=== PATIENT | male | born 1980 | race Caucasian/White ===

== ENCOUNTER 2017-05-12 00:24 | Day surgery (SDC) | payer OTHER ==
[~2017-05-12 00:24] MED LIST: AMOCLA875 PO; CYCL100 PO; Carbidopa-Levo1 EAC1 PO; ERGO50000; FEXPSEER; FOLI1 PO; Ferrousul325 MG PO; GENGRAF PO; Hydrocodone-Ap1 EA23 PO; IMMUNOGLOBULIN IV; LOSA25 PO; Lidocaine-Priloc5 GM TOP; METTREX2.5 PO; ONDA8 PO; PRED20 PO; PROM25; Rituxan10 MG/ML; Sudogest60 MG PO; VICODIN 5-3001 EACH PO
[2017-10-04] MEDS ORDERED: METO25 PO (11:21)
== END 2017-05-12 12:15 | disposition home or self-care (01) ==
LOC: ATC 00:24
DX: G70.00 Myasthenia gravis without (acute) exacerbation (principal)
CPT/HCPCS: 96365; 96366; 96375; J1200; J1568; J2405

== ENCOUNTER → 2017-05-24 | Outpatient (CLI) | payer OTHER ==
[~2017-05-24] MED LIST changes: +AMOX875 PO; +CEFP200 PO; +Hydrocodone-Ap1 EA26 PO; +LEVFLO500 PO; +METO10 PO; +METO25 PO; +METR500 PO; +OMEPRAZOLE MAGN20 MG PO; +ONDA4ODT SL
== END | disposition home or self-care (01) ==
LOC: LAB SHORT 07:37 → PLD 07:37
DX: D48.5 Neoplasm of uncertain behavior of skin (principal)
CPT/HCPCS: 88305; 88312

== ENCOUNTER 2017-06-23 00:28 | Day surgery (SDC) | payer OTHER ==
[~2017-06-23 00:28] MED LIST changes: -AMOX875 PO; -CEFP200 PO; -Hydrocodone-Ap1 EA26 PO; -LEVFLO500 PO; -METO10 PO; -METO25 PO; -METR500 PO; -OMEPRAZOLE MAGN20 MG PO; -ONDA4ODT SL
[2017-06-23] MEDS ORDERED: AMOX875 PO (08:34)
[2017-10-04] MEDS ORDERED: METO25 PO (11:21)
== END 2017-06-23 12:40 ==
LOC: ATC 00:28
DX: G70.00 Myasthenia gravis without (acute) exacerbation (principal)
CPT/HCPCS: 96365; 96366; J1200; J1568

== ENCOUNTER → 2017-07-21 | Outpatient (CLI) | payer OTHER ==
[~2017-07-21] MED LIST changes: +AMOX875 PO
[2017-07-21 13:43] LABS: Protein, Urine Quantitative 11.4 mg/dL (0.0-11.9)
[2017-07-21 13:44] LABS: Microalbumin, Urine Quant. 6.47 mg/L (0.000-20.000)
== END | disposition home or self-care (01) ==
LOC: LAB 11:39 → LAB FUT 07-19 13:20
PROVIDERS: Internal Medicine Nephrology
DX: N18.2 Chronic kidney disease, stage 2 (mild) (principal); D75.1 Secondary polycythemia; N25.81 Secondary hyperparathyroidism of renal origin; E78.00 Pure hypercholesterolemia, unspecified; E55.9 Vitamin D deficiency, unspecified; R76.9 Abnormal immunological finding in serum, unspecified; R94.5 Abnormal results of liver function studies; R94.6 Abnormal results of thyroid function studies
CPT/HCPCS: 81050; 82043; 84156

== ENCOUNTER 2017-07-30 00:16 | Day surgery (SDC) | payer OTHER | END 2017-07-30 12:15 | disposition home or self-care (01) | LOC: ATC 00:16 | DX: G70.00 Myasthenia gravis without (acute) exacerbation (principal) | CPT/HCPCS: 96365; 96366; 96375; J1200; J1568 ==

== ENCOUNTER 2017-09-09 00:24 | Day surgery (SDC) | payer OTHER | END 2017-09-09 13:00 | disposition home or self-care (01) | LOC: ATC 00:24 | DX: G70.00 Myasthenia gravis without (acute) exacerbation (principal); R11.2 Nausea with vomiting, unspecified | CPT/HCPCS: 96365; 96366; 96375; J1200; J1568 ==

== ENCOUNTER 2017-09-20 13:11 | Inpatient (IN) | payer OTHER ==
[~2017-09-20 13:11] MED LIST changes: -Hydrocodone-Ap1 EA26 PO; -LEVFLO500 PO; -METR500 PO; -OMEPRAZOLE MAGN20 MG PO; -ONDA4ODT SL
[2017-09-21 05:15] LABS: BASOPHILS ABSOLUTE AUTO 0.02 K/mm3 (0.00-0.23); BASOPHILS PERCENT AUTO 0 % (0-2); EOSINOPHILS PERCENT AUTO 0 % (0-6); Hemoglobin 11.6 g/dL (13.5-17.5); IMMATURE GRAN ABSOLUTE AUTO 0.07 K/mm3 (0.00-0.10); IMMATURE GRAN PERCENT AUTO 0 % (0-1); LYMPHOCYTES ABSOLUTE AUTO 0.65 K/mm3 (0.84-5.20); LYMPHOCYTES PERCENT AUTO 4 % (21-46); MONOCYTES ABSOLUTE AUTO 1.44 K/mm3 (0.16-1.47); MONOCYTES PERCENT AUTO 9 % (4-13); Mean Corpuscular HGB 32.7 pg (26.0-34.0); Mean Corpuscular HGB Conc 34.1 g/dL (31.5-36.5); Mean Corpuscular Volume 96 fL (80-100); Mean Platelet Volume 9.6 fL (9.1-12.4); NEUTROPHILS ABSOLUTE AUTO 14.84 K/mm3 (1.96-9.15); NEUTROPHILS PERCENT AUTO 87 % (41-73); Platelet Count 254 K/mm3 (150-400); RDW Coefficient Variation 13.4 % (11.7-14.2); RDW Standard Deviation 47.3 fL (35.1-46.3); Red Blood Cell Count 3.55 M/mm3 (4.30-5.90); White Blood Cell Count 17.02 K/mm3 (4.00-11.30)
[2017-09-21 05:34] LABS: Alanine Aminotransfer (ALT/SGP 26 U/L (12-78); Albumin/Globulin Ratio 0.5 (0.8-1.8); Alk Phos 105 U/L (50-136); Anion Gap 7 mmol/L (6-16); Aspartate Aminotrans (AST/SGOT 16 U/L (12-37); Bilirubin, Total 1.1 mg/dL (0.1-1.0); Blood Urea Nitrogen 21 mg/dL (8-24); Bun/Creatinine Ratio 17.1 (12.0-20.0); CO2, Blood 27 mmol/L (21-32); Calcium, Blood 8.2 mg/dL (8.5-10.1); Chloride, Blood 103 mmol/L (98-108); Creatinine, Blood 1.23 mg/dL (0.60-1.20); Globulin, Blood 5.5 g/dL (2.2-4.0); Glomerular Filtration Rate >60 (60-); Glucose, Blood 141 mg/dL (70-99); Potassium, Blood 4.5 mmol/L (3.5-5.5); Sodium, Blood 137 mmol/L (136-145); Total Protein, Blood 8.5 g/dL (6.4-8.2)
[2017-09-22 05:16] LABS: BASOPHILS ABSOLUTE AUTO 0.03 K/mm3 (0.00-0.23); BASOPHILS PERCENT AUTO 0 % (0-2); EOSINOPHILS ABSOLUTE AUTO 0.04 K/mm3 (0.00-0.68); EOSINOPHILS PERCENT AUTO 0 % (0-6); Hematocrit 36.5 % (37.0-53.0); Hemoglobin 12.3 g/dL (13.5-17.5); IMMATURE GRAN ABSOLUTE AUTO 0.08 K/mm3 (0.00-0.10); IMMATURE GRAN PERCENT AUTO 1 % (0-1); LYMPHOCYTES ABSOLUTE AUTO 0.98 K/mm3 (0.84-5.20); LYMPHOCYTES PERCENT AUTO 6 % (21-46); MONOCYTES ABSOLUTE AUTO 1.63 K/mm3 (0.16-1.47); MONOCYTES PERCENT AUTO 10 % (4-13); Mean Corpuscular HGB 32.3 pg (26.0-34.0); Mean Corpuscular HGB Conc 33.7 g/dL (31.5-36.5); Mean Corpuscular Volume 96 fL (80-100); Mean Platelet Volume 9.4 fL (9.1-12.4); NEUTROPHILS ABSOLUTE AUTO 13.33 K/mm3 (1.96-9.15); NEUTROPHILS PERCENT AUTO 83 % (41-73); Platelet Count 299 K/mm3 (150-400); RDW Coefficient Variation 13.8 % (11.7-14.2); RDW Standard Deviation 48.3 fL (35.1-46.3); Red Blood Cell Count 3.81 M/mm3 (4.30-5.90); White Blood Cell Count 16.09 K/mm3 (4.00-11.30)
[2017-09-23 04:59] LABS: BASOPHILS ABSOLUTE AUTO 0.05 K/mm3 (0.00-0.23); BASOPHILS PERCENT AUTO 0 % (0-2); EOSINOPHILS ABSOLUTE AUTO 0.37 K/mm3 (0.00-0.68); EOSINOPHILS PERCENT AUTO 3 % (0-6); Hematocrit 35.9 % (37.0-53.0); Hemoglobin 12.1 g/dL (13.5-17.5); IMMATURE GRAN ABSOLUTE AUTO 0.06 K/mm3 (0.00-0.10); IMMATURE GRAN PERCENT AUTO 1 % (0-1); LYMPHOCYTES ABSOLUTE AUTO 1.18 K/mm3 (0.84-5.20); LYMPHOCYTES PERCENT AUTO 9 % (21-46); MONOCYTES ABSOLUTE AUTO 1.75 K/mm3 (0.16-1.47); MONOCYTES PERCENT AUTO 14 % (4-13); Mean Corpuscular HGB 32.6 pg (26.0-34.0); Mean Corpuscular HGB Conc 33.7 g/dL (31.5-36.5); Mean Corpuscular Volume 97 fL (80-100); Mean Platelet Volume 9.5 fL (9.1-12.4); NEUTROPHILS ABSOLUTE AUTO 9.53 K/mm3 (1.96-9.15); NEUTROPHILS PERCENT AUTO 74 % (41-73); Platelet Count 322 K/mm3 (150-400); RDW Standard Deviation 49.8 fL (35.1-46.3); Red Blood Cell Count 3.71 M/mm3 (4.30-5.90); White Blood Cell Count 12.94 K/mm3 (4.00-11.30)
[2017-09-23 05:15] LABS: Bun/Creatinine Ratio 16.9 (12.0-20.0); Calcium, Blood 8.2 mg/dL (8.5-10.1); Creatinine, Blood 2.19 mg/dL (0.60-1.20); Potassium, Blood 3.4 mmol/L (3.5-5.5)
[2017-09-24 04:16] LABS: BASOPHILS ABSOLUTE AUTO 0.03 K/mm3 (0.00-0.23); BASOPHILS PERCENT AUTO 0 % (0-2); EOSINOPHILS ABSOLUTE AUTO 0.37 K/mm3 (0.00-0.68); EOSINOPHILS PERCENT AUTO 3 % (0-6); Hematocrit 32.3 % (37.0-53.0); Hemoglobin 11.1 g/dL (13.5-17.5); IMMATURE GRAN ABSOLUTE AUTO 0.06 K/mm3 (0.00-0.10); IMMATURE GRAN PERCENT AUTO 1 % (0-1); LYMPHOCYTES PERCENT AUTO 6 % (21-46); MONOCYTES ABSOLUTE AUTO 1.51 K/mm3 (0.16-1.47); MONOCYTES PERCENT AUTO 13 % (4-13); Mean Corpuscular HGB 33.4 pg (26.0-34.0); Mean Corpuscular HGB Conc 34.4 g/dL (31.5-36.5); Mean Corpuscular Volume 97 fL (80-100); Mean Platelet Volume 9.1 fL (9.1-12.4); NEUTROPHILS ABSOLUTE AUTO 9.01 K/mm3 (1.96-9.15); NEUTROPHILS PERCENT AUTO 77 % (41-73); Platelet Count 284 K/mm3 (150-400); RDW Standard Deviation 49.4 fL (35.1-46.3); Red Blood Cell Count 3.32 M/mm3 (4.30-5.90); White Blood Cell Count 11.68 K/mm3 (4.00-11.30)
[2017-09-24 04:31] LABS: Bun/Creatinine Ratio 19.7 (12.0-20.0); Calcium, Blood 8.2 mg/dL (8.5-10.1); Creatinine, Blood 2.13 mg/dL (0.60-1.20); Potassium, Blood 3.7 mmol/L (3.5-5.5)
[2017-09-25 05:00] LABS: BASOPHILS ABSOLUTE AUTO 0.02 K/mm3 (0.00-0.23); BASOPHILS PERCENT AUTO 0 % (0-2); EOSINOPHILS ABSOLUTE AUTO 0.51 K/mm3 (0.00-0.68); EOSINOPHILS PERCENT AUTO 6 % (0-6); Hematocrit 28.1 % (37.0-53.0); Hemoglobin 9.4 g/dL (13.5-17.5); IMMATURE GRAN ABSOLUTE AUTO 0.03 K/mm3 (0.00-0.10); IMMATURE GRAN PERCENT AUTO 0 % (0-1); LYMPHOCYTES PERCENT AUTO 8 % (21-46); MONOCYTES ABSOLUTE AUTO 0.97 K/mm3 (0.16-1.47); MONOCYTES PERCENT AUTO 11 % (4-13); Mean Corpuscular HGB 32.1 pg (26.0-34.0); Mean Corpuscular HGB Conc 33.5 g/dL (31.5-36.5); Mean Corpuscular Volume 96 fL (80-100); Mean Platelet Volume 9.3 fL (9.1-12.4); NEUTROPHILS ABSOLUTE AUTO 6.38 K/mm3 (1.96-9.15); NEUTROPHILS PERCENT AUTO 74 % (41-73); Platelet Count 240 K/mm3 (150-400); RDW Standard Deviation 49.1 fL (35.1-46.3); Red Blood Cell Count 2.93 M/mm3 (4.30-5.90); White Blood Cell Count 8.61 K/mm3 (4.00-11.30)
[2017-09-25 05:17] LABS: Albumin, Blood 2.3 g/dL (3.4-5.0); Anion Gap 9 mmol/L (6-16); Blood Urea Nitrogen 39 mg/dL (8-24); Bun/Creatinine Ratio 23.9 (12.0-20.0); CO2, Blood 23 mmol/L (21-32); Chloride, Blood 108 mmol/L (98-108); Creatinine, Blood 1.63 mg/dL (0.60-1.20); Glomerular Filtration Rate 51 (60-); Glucose, Blood 102 mg/dL (70-99); Phosphorus, Blood 2.9 mg/dL (2.5-4.9); Potassium, Blood 3.8 mmol/L (3.5-5.5); Sodium, Blood 140 mmol/L (136-145)
[2017-09-26 04:43] LABS: BASOPHILS ABSOLUTE AUTO 0.03 K/mm3 (0.00-0.23); BASOPHILS PERCENT AUTO 0 % (0-2); EOSINOPHILS PERCENT AUTO 5 % (0-6); Hematocrit 27.6 % (37.0-53.0); Hemoglobin 9.1 g/dL (13.5-17.5); IMMATURE GRAN ABSOLUTE AUTO 0.04 K/mm3 (0.00-0.10); IMMATURE GRAN PERCENT AUTO 0 % (0-1); LYMPHOCYTES ABSOLUTE AUTO 0.64 K/mm3 (0.84-5.20); LYMPHOCYTES PERCENT AUTO 6 % (21-46); MONOCYTES PERCENT AUTO 9 % (4-13); Mean Corpuscular HGB 31.7 pg (26.0-34.0); Mean Corpuscular Volume 96 fL (80-100); Mean Platelet Volume 9.2 fL (9.1-12.4); NEUTROPHILS ABSOLUTE AUTO 8.46 K/mm3 (1.96-9.15); NEUTROPHILS PERCENT AUTO 79 % (41-73); Platelet Count 272 K/mm3 (150-400); RDW Coefficient Variation 14.3 % (11.7-14.2); RDW Standard Deviation 50.2 fL (35.1-46.3); Red Blood Cell Count 2.87 M/mm3 (4.30-5.90); White Blood Cell Count 10.67 K/mm3 (4.00-11.30)
[2017-09-26 05:04] LABS: Albumin, Blood 2.3 g/dL (3.4-5.0); Anion Gap 8 mmol/L (6-16); Blood Urea Nitrogen 24 mg/dL (8-24); Bun/Creatinine Ratio 20.5 (12.0-20.0); CO2, Blood 24 mmol/L (21-32); Chloride, Blood 110 mmol/L (98-108); Creatinine, Blood 1.17 mg/dL (0.60-1.20); Glomerular Filtration Rate >60 (60-); Glucose, Blood 89 mg/dL (70-99); Phosphorus, Blood 2.2 mg/dL (2.5-4.9); Potassium, Blood 3.9 mmol/L (3.5-5.5); Sodium, Blood 142 mmol/L (136-145)
[2017-09-27 05:13] LABS: BASOPHILS ABSOLUTE AUTO 0.03 K/mm3 (0.00-0.23); BASOPHILS PERCENT AUTO 0 % (0-2); EOSINOPHILS ABSOLUTE AUTO 0.64 K/mm3 (0.00-0.68); EOSINOPHILS PERCENT AUTO 5 % (0-6); Hematocrit 27.2 % (37.0-53.0); Hemoglobin 9.1 g/dL (13.5-17.5); IMMATURE GRAN ABSOLUTE AUTO 0.07 K/mm3 (0.00-0.10); IMMATURE GRAN PERCENT AUTO 1 % (0-1); LYMPHOCYTES PERCENT AUTO 5 % (21-46); MONOCYTES ABSOLUTE AUTO 1.19 K/mm3 (0.16-1.47); MONOCYTES PERCENT AUTO 9 % (4-13); Mean Corpuscular HGB 32.2 pg (26.0-34.0); Mean Corpuscular HGB Conc 33.5 g/dL (31.5-36.5); Mean Corpuscular Volume 96 fL (80-100); Mean Platelet Volume 9.4 fL (9.1-12.4); NEUTROPHILS ABSOLUTE AUTO 10.27 K/mm3 (1.96-9.15); NEUTROPHILS PERCENT AUTO 80 % (41-73); Platelet Count 278 K/mm3 (150-400); RDW Coefficient Variation 14.1 % (11.7-14.2); RDW Standard Deviation 49.9 fL (35.1-46.3); Red Blood Cell Count 2.83 M/mm3 (4.30-5.90)
[2017-09-27 05:29] LABS: Albumin, Blood 2.3 g/dL (3.4-5.0); Anion Gap 10 mmol/L (6-16); Blood Urea Nitrogen 16 mg/dL (8-24); Bun/Creatinine Ratio 16.8 (12.0-20.0); CO2, Blood 21 mmol/L (21-32); Calcium, Blood 7.7 mg/dL (8.5-10.1); Chloride, Blood 109 mmol/L (98-108); Creatinine, Blood 0.95 mg/dL (0.60-1.20); Glomerular Filtration Rate >60 (60-); Glucose, Blood 86 mg/dL (70-99); Phosphorus, Blood 2.8 mg/dL (2.5-4.9); Potassium, Blood 3.8 mmol/L (3.5-5.5); Sodium, Blood 140 mmol/L (136-145)
[2017-09-28 04:15] LABS: BASOPHILS ABSOLUTE AUTO 0.04 K/mm3 (0.00-0.23); BASOPHILS PERCENT AUTO 0 % (0-2); EOSINOPHILS ABSOLUTE AUTO 0.72 K/mm3 (0.00-0.68); EOSINOPHILS PERCENT AUTO 5 % (0-6); Hematocrit 27.4 % (37.0-53.0); Hemoglobin 9.3 g/dL (13.5-17.5); IMMATURE GRAN ABSOLUTE AUTO 0.07 K/mm3 (0.00-0.10); IMMATURE GRAN PERCENT AUTO 1 % (0-1); LYMPHOCYTES ABSOLUTE AUTO 0.85 K/mm3 (0.84-5.20); LYMPHOCYTES PERCENT AUTO 6 % (21-46); MONOCYTES ABSOLUTE AUTO 1.26 K/mm3 (0.16-1.47); MONOCYTES PERCENT AUTO 9 % (4-13); Mean Corpuscular HGB 32.6 pg (26.0-34.0); Mean Corpuscular HGB Conc 33.9 g/dL (31.5-36.5); Mean Corpuscular Volume 96 fL (80-100); Mean Platelet Volume 9.4 fL (9.1-12.4); NEUTROPHILS ABSOLUTE AUTO 10.49 K/mm3 (1.96-9.15); NEUTROPHILS PERCENT AUTO 78 % (41-73); Platelet Count 283 K/mm3 (150-400); RDW Standard Deviation 49.7 fL (35.1-46.3); Red Blood Cell Count 2.85 M/mm3 (4.30-5.90); White Blood Cell Count 13.43 K/mm3 (4.00-11.30)
[2017-09-28 04:31] LABS: Anion Gap 8 mmol/L (6-16); Blood Urea Nitrogen 12 mg/dL (8-24); CO2, Blood 23 mmol/L (21-32); Calcium, Blood 7.3 mg/dL (8.5-10.1); Chloride, Blood 107 mmol/L (98-108); Creatinine, Blood 0.93 mg/dL (0.60-1.20); Glomerular Filtration Rate >60 (60-); Glucose, Blood 83 mg/dL (70-99); Magnesium, Blood 1.3 mg/dL (1.6-2.4); Phosphorus, Blood 2.8 mg/dL (2.5-4.9); Potassium, Blood 3.9 mmol/L (3.5-5.5); Sodium, Blood 138 mmol/L (136-145)
[2017-09-29 10:23] LABS: BASOPHILS ABSOLUTE AUTO 0.05 K/mm3 (0.00-0.23); BASOPHILS PERCENT AUTO 0 % (0-2); EOSINOPHILS ABSOLUTE AUTO 0.71 K/mm3 (0.00-0.68); EOSINOPHILS PERCENT AUTO 6 % (0-6); IMMATURE GRAN ABSOLUTE AUTO 0.12 K/mm3 (0.00-0.10); IMMATURE GRAN PERCENT AUTO 1 % (0-1); LYMPHOCYTES PERCENT AUTO 7 % (21-46); MONOCYTES ABSOLUTE AUTO 1.17 K/mm3 (0.16-1.47); MONOCYTES PERCENT AUTO 10 % (4-13); Mean Corpuscular HGB 31.6 pg (26.0-34.0); Mean Corpuscular HGB Conc 33.3 g/dL (31.5-36.5); Mean Corpuscular Volume 95 fL (80-100); Mean Platelet Volume 9.2 fL (9.1-12.4); NEUTROPHILS PERCENT AUTO 77 % (41-73); Platelet Count 343 K/mm3 (150-400); RDW Coefficient Variation 13.8 % (11.7-14.2); RDW Standard Deviation 47.7 fL (35.1-46.3); Red Blood Cell Count 3.16 M/mm3 (4.30-5.90); White Blood Cell Count 12.25 K/mm3 (4.00-11.30)
[2017-09-29 11:15] LABS: Alanine Aminotransfer (ALT/SGP 34 U/L (12-78); Albumin, Blood 2.6 g/dL (3.4-5.0); Albumin/Globulin Ratio 0.6 (0.8-1.8); Alk Phos 113 U/L (50-136); Anion Gap 10 mmol/L (6-16); Aspartate Aminotrans (AST/SGOT 58 U/L (12-37); Bilirubin, Total 0.8 mg/dL (0.1-1.0); Blood Urea Nitrogen 11 mg/dL (8-24); Bun/Creatinine Ratio 10.1 (12.0-20.0); CO2, Blood 25 mmol/L (21-32); Chloride, Blood 105 mmol/L (98-108); Creatinine, Blood 1.09 mg/dL (0.60-1.20); Globulin, Blood 4.2 g/dL (2.2-4.0); Glomerular Filtration Rate >60 (60-); Glucose, Blood 104 mg/dL (70-99); Potassium, Blood 3.7 mmol/L (3.5-5.5); Sodium, Blood 140 mmol/L (136-145); Total Protein, Blood 6.8 g/dL (6.4-8.2)
[2017-09-30] MEDS ORDERED: Hydrocodone-Ap1 EA26 PO (10:21)
[2017-09-30] MEDS ORDERED: LEVFLO500 PO (10:22)
[2017-09-30] MEDS ORDERED: METR500 PO (10:23)
[2017-09-30] MEDS ORDERED: OMEPRAZOLE MAGN20 MG PO (10:23)
[2017-09-30] MEDS ORDERED: ONDA4ODT SL (10:25)
== END 2017-09-30 12:21 | disposition home or self-care (01) | DRG 853 ==
LOC: SURS 13:11
PROVIDERS: Family Medicine; Internal Medicine; Student in an Organized Health Care Education/Training Program; Surgery
PROC: 0DJD4ZZ Inspection of Lower Intestinal Tract, Percutaneous Endoscopic Approach (ICD-10-PCS; 2017-09-20)
PROC: 0DTH0ZZ Resection of Cecum, Open Approach (ICD-10-PCS; 2017-09-20)
PROC: 0DTJ0ZZ Resection of Appendix, Open Approach (ICD-10-PCS; principal; 2017-09-20 10:15)
DX: A41.9 Sepsis, unspecified organism (principal); K35.3 Acute appendicitis with localized peritonitis; K65.1 Peritoneal abscess; C83.30 Diffuse large B-cell lymphoma, unspecified site; I47.1 Supraventricular tachycardia; N17.9 Acute kidney failure, unspecified; T81.4XXA Infection following a procedure, initial encounter; K21.9 Gastro-esophageal reflux disease without esophagitis; G70.00 Myasthenia gravis without (acute) exacerbation; E78.5 Hyperlipidemia, unspecified; I12.9 Hypertensive chronic kidney disease with stage 1 through stage 4 chronic kidney disease, or unspecified chronic kidney disease; N18.3 Chronic kidney disease, stage 3 (moderate); T36.1X1A Poisoning by cephalosporins and other beta-lactam antibiotics, accidental (unintentional), initial encounter; L25.1 Unspecified contact dermatitis due to drugs in contact with skin; G25.81 Restless legs syndrome
CPT/HCPCS: 36415; 71046; 74018; 74177; 80048; 80053; 80069; 83605; 83735; 83880; 84100; 84443; 85025; 85379; 86140; 87040; 87493; 88304; 93005; 93010; 93970; 96361; 96365; G0378; J0295; J0696; J2185; J2250; J2405; J2550; J2765; J3010; J3480; J7030; J7120; Q0163; Q9967

== ENCOUNTER → 2017-09-20 | Outpatient (CLI) | payer OTHER ==
[~2017-09-20] MED LIST changes: +Hydrocodone-Ap1 EA26 PO; +LEVFLO500 PO; +METR500 PO; +OMEPRAZOLE MAGN20 MG PO; +ONDA4ODT SL
[2017-09-20 08:15] LABS: BASOPHILS ABSOLUTE AUTO 0.04 K/mm3 (0.00-0.23); BASOPHILS PERCENT AUTO 0 % (0-2); EOSINOPHILS ABSOLUTE AUTO 0.27 K/mm3 (0.00-0.68); EOSINOPHILS PERCENT AUTO 2 % (0-6); Hematocrit 35.6 % (37.0-53.0); Hemoglobin 12.6 g/dL (13.5-17.5); IMMATURE GRAN ABSOLUTE AUTO 0.07 K/mm3 (0.00-0.10); IMMATURE GRAN PERCENT AUTO 1 % (0-1); LYMPHOCYTES PERCENT AUTO 10 % (21-46); MONOCYTES PERCENT AUTO 11 % (4-13); Mean Corpuscular HGB 33.4 pg (26.0-34.0); Mean Corpuscular HGB Conc 35.4 g/dL (31.5-36.5); Mean Corpuscular Volume 94 fL (80-100); Mean Platelet Volume 9.6 fL (9.1-12.4); NEUTROPHILS ABSOLUTE AUTO 11.03 K/mm3 (1.96-9.15); NEUTROPHILS PERCENT AUTO 77 % (41-73); Platelet Count 260 K/mm3 (150-400); RDW Coefficient Variation 13.3 % (11.7-14.2); RDW Standard Deviation 45.8 fL (35.1-46.3); Red Blood Cell Count 3.77 M/mm3 (4.30-5.90); White Blood Cell Count 14.31 K/mm3 (4.00-11.30)
[2017-09-20 08:24] LABS: Albumin, Blood 3.7 g/dL (3.4-5.0); Albumin/Globulin Ratio 0.7 (0.8-1.8); Bilirubin, Total 1.5 mg/dL (0.1-1.0); Bun/Creatinine Ratio 19.4 (12.0-20.0); Creatinine, Blood 1.6 mg/dL (0.60-1.20); Globulin, Blood 5.6 g/dL (2.2-4.0); Potassium, Blood 3.6 mmol/L (3.5-5.5); Total Protein, Blood 9.3 g/dL (6.4-8.2)
== END | disposition home or self-care (01) ==
LOC: LAB SHORT 08:08 → LAB EV 08:08
PROVIDERS: Physician Assistant Medical
DX: R10.32 Left lower quadrant pain (principal)
CPT/HCPCS: 80053; 83690; 85025

== ENCOUNTER 2017-10-04 11:05 | Emergency (ER) | payer OTHER ==
[~2017-10-04] VITALS: Ht 190.5 cm; Wt 95.2 kg
[~2017-10-04 11:05] MED LIST changes: +Hydrocodone-Ap1 EA26 PO; +LEVFLO500 PO; +METR500 PO; +OMEPRAZOLE MAGN20 MG PO; +ONDA4ODT SL
[2017-10-04] MEDS ORDERED: METO25 (11:21)
[2017-10-04 11:48] LABS: BASOPHILS ABSOLUTE AUTO 0.07 K/mm3 (0.00-0.23); BASOPHILS PERCENT AUTO 1 % (0-2); EOSINOPHILS ABSOLUTE AUTO 0.34 K/mm3 (0.00-0.68); EOSINOPHILS PERCENT AUTO 4 % (0-6); Hematocrit 36.5 % (37.0-53.0); IMMATURE GRAN ABSOLUTE AUTO 0.27 K/mm3 (0.00-0.10); IMMATURE GRAN PERCENT AUTO 3 % (0-1); LYMPHOCYTES ABSOLUTE AUTO 1.24 K/mm3 (0.84-5.20); LYMPHOCYTES PERCENT AUTO 14 % (21-46); MONOCYTES ABSOLUTE AUTO 1.13 K/mm3 (0.16-1.47); MONOCYTES PERCENT AUTO 13 % (4-13); Mean Corpuscular HGB 32.1 pg (26.0-34.0); Mean Corpuscular HGB Conc 32.9 g/dL (31.5-36.5); Mean Platelet Volume 9.4 fL (9.1-12.4); NEUTROPHILS ABSOLUTE AUTO 5.82 K/mm3 (1.96-9.15); NEUTROPHILS PERCENT AUTO 66 % (41-73); Platelet Count 516 K/mm3 (150-400); RDW Coefficient Variation 14.3 % (11.7-14.2); RDW Standard Deviation 50.3 fL (35.1-46.3); Red Blood Cell Count 3.74 M/mm3 (4.30-5.90); White Blood Cell Count 8.87 K/mm3 (4.00-11.30)
[2017-10-04 11:50] LABS: Mean Corpuscular Volume 98 fL (80-100)
[2017-10-04 12:02] LABS: Alanine Aminotransfer (ALT/SGP 36 U/L (12-78); Albumin, Blood 3.2 g/dL (3.4-5.0); Albumin/Globulin Ratio 0.7 (0.8-1.8); Alk Phos 105 U/L (50-136); Anion Gap 10 mmol/L (6-16); Aspartate Aminotrans (AST/SGOT 48 U/L (12-37); Bilirubin, Total 0.7 mg/dL (0.1-1.0); Blood Urea Nitrogen 13 mg/dL (8-24); Bun/Creatinine Ratio 10.7 (12.0-20.0); CO2, Blood 25 mmol/L (21-32); Calcium, Blood 8.3 mg/dL (8.5-10.1); Chloride, Blood 101 mmol/L (98-108); Creatinine, Blood 1.21 mg/dL (0.60-1.20); Globulin, Blood 4.7 g/dL (2.2-4.0); Glomerular Filtration Rate >60 (60-); Glucose, Blood 94 mg/dL (70-99); Potassium, Blood 4.2 mmol/L (3.5-5.5); Sodium, Blood 136 mmol/L (136-145); Total Protein, Blood 7.9 g/dL (6.4-8.2); Troponin I <0.015 ng/mL (0.000-0.040)
[2017-10-05] MEDS ORDERED: CEFP200 PO (01:16)
[2017-10-05] MEDS ORDERED: METO10 PO (01:58)
== END 2017-10-04 13:29 | disposition home or self-care (01) ==
LOC: ER 11:05
PROVIDERS: Physician Assistant
DX: R55 Syncope and collapse (principal); Z88.0 Allergy status to penicillin; Z88.8 Allergy status to other drugs, medicaments and biological substances; Z88.1 Allergy status to other antibiotic agents; Z79.899 Other long term (current) drug therapy; Z79.2 Long term (current) use of antibiotics
CPT/HCPCS: 80053; 81000; 84484; 85025; 93005; 93010; 96360; 96361; 99283; J7030

== ENCOUNTER 2017-10-04 20:48 | Emergency (ER) | payer OTHER ==
[~2017-10-04] VITALS: Ht 190.5 cm; Wt 95.2 kg
[~2017-10-04 20:48] MED LIST changes: +METO25
[2017-10-04 22:28] LABS: BASOPHILS ABSOLUTE AUTO 0.07 K/mm3 (0.00-0.23); BASOPHILS PERCENT AUTO 1 % (0-2); EOSINOPHILS ABSOLUTE AUTO 0.19 K/mm3 (0.00-0.68); EOSINOPHILS PERCENT AUTO 2 % (0-6); Hematocrit 38.1 % (37.0-53.0); Hemoglobin 12.7 g/dL (13.5-17.5); IMMATURE GRAN ABSOLUTE AUTO 0.19 K/mm3 (0.00-0.10); IMMATURE GRAN PERCENT AUTO 2 % (0-1); LYMPHOCYTES ABSOLUTE AUTO 1.23 K/mm3 (0.84-5.20); LYMPHOCYTES PERCENT AUTO 13 % (21-46); MONOCYTES ABSOLUTE AUTO 1.21 K/mm3 (0.16-1.47); MONOCYTES PERCENT AUTO 13 % (4-13); Mean Corpuscular HGB 32.6 pg (26.0-34.0); Mean Corpuscular HGB Conc 33.3 g/dL (31.5-36.5); Mean Corpuscular Volume 98 fL (80-100); Mean Platelet Volume 9.1 fL (9.1-12.4); NEUTROPHILS ABSOLUTE AUTO 6.67 K/mm3 (1.96-9.15); NEUTROPHILS PERCENT AUTO 70 % (41-73); Platelet Count 566 K/mm3 (150-400); RDW Coefficient Variation 14.2 % (11.7-14.2); RDW Standard Deviation 50.6 fL (35.1-46.3); Red Blood Cell Count 3.89 M/mm3 (4.30-5.90); White Blood Cell Count 9.56 K/mm3 (4.00-11.30)
[2017-10-04 22:47] LABS: Anion Gap 10 mmol/L (6-16); Blood Urea Nitrogen 11 mg/dL (8-24); Bun/Creatinine Ratio 9.2 (12.0-20.0); CO2, Blood 26 mmol/L (21-32); Calcium, Blood 8.3 mg/dL (8.5-10.1); Chloride, Blood 104 mmol/L (98-108); Glomerular Filtration Rate >60 (60-); Glucose, Blood 97 mg/dL (70-99); Potassium, Blood 4.1 mmol/L (3.5-5.5); Sodium, Blood 140 mmol/L (136-145); Troponin I <0.015 ng/mL (0.000-0.040)
[2017-10-05] MEDS ORDERED: CEFP200 PO (01:16)
[2017-10-05] MEDS ORDERED: METO10 PO (01:58)
== END 2017-10-05 01:55 | disposition home or self-care (01) ==
LOC: ER 20:48
PROVIDERS: Emergency Medicine
DX: R53.1 Weakness (principal); T37.8X5A Adverse effect of other specified systemic anti-infectives and antiparasitics, initial encounter; Z88.1 Allergy status to other antibiotic agents; Z88.0 Allergy status to penicillin; Z79.899 Other long term (current) drug therapy
CPT/HCPCS: 36415; 71260; 80048; 84484; 85025; 85379; 93005; 93010; 99284; Q9967

== ENCOUNTER 2017-10-11 00:38 | Day surgery (SDC) | payer OTHER ==
[~2017-10-11 00:38] MED LIST changes: +CEFP200 PO; +METO10 PO
== END 2017-10-11 18:27 | disposition home or self-care (01) ==
LOC: ATC 00:38
DX: G70.00 Myasthenia gravis without (acute) exacerbation (principal); R11.2 Nausea with vomiting, unspecified
CPT/HCPCS: 96365; 96375; 96415; J1200; J1568

== ENCOUNTER 2017-11-15 00:30 | Day surgery (SDC) | payer OTHER ==
[~2017-11-15 00:30] MED LIST changes: -METO25; +METO25 PO
== END 2017-11-15 12:21 | disposition home or self-care (01) ==
LOC: ATC 00:30
DX: G70.00 Myasthenia gravis without (acute) exacerbation (principal); R11.2 Nausea with vomiting, unspecified
CPT/HCPCS: 96375; 96413; 96415; J1200; J1568; J2405

== ENCOUNTER 2017-12-20 00:26 | Day surgery (SDC) | payer OTHER | END 2017-12-20 12:45 | disposition home or self-care (01) | LOC: ATC 00:26 | DX: G70.00 Myasthenia gravis without (acute) exacerbation (principal) | CPT/HCPCS: 96365; 96366; 96374; J1200; J1568; J2405 ==

== ENCOUNTER → 2018-01-13 | Outpatient (CLI) | payer OTHER ==
[2018-01-13 11:12] LABS: Protein, Urine Quantitative 13.5 mg/dL (0.0-11.9)
== END | disposition home or self-care (01) ==
LOC: LAB SHORT 07:05 → LAB 07:05 → LAB FUT 01-11 12:35
PROVIDERS: Internal Medicine Nephrology
DX: N18.3 Chronic kidney disease, stage 3 (moderate) (principal); D63.1 Anemia in chronic kidney disease; E78.00 Pure hypercholesterolemia, unspecified; N25.81 Secondary hyperparathyroidism of renal origin; E55.9 Vitamin D deficiency, unspecified; R80.9 Proteinuria, unspecified
CPT/HCPCS: 81050; 82043; 84156

== ENCOUNTER 2018-01-17 00:11 | Day surgery (SDC) | payer OTHER | END 2018-01-17 13:18 | disposition home or self-care (01) | LOC: ATC 00:11 | DX: G70.00 Myasthenia gravis without (acute) exacerbation (principal) | CPT/HCPCS: 96365; 96366; 96375; J1200; J1568 ==

== ENCOUNTER 2018-04-18 00:40 | Day surgery (SDC) | payer OTHER | END 2018-04-18 12:48 | disposition home or self-care (01) | LOC: ATC 00:40 | DX: R11.2 Nausea with vomiting, unspecified (principal); G70.00 Myasthenia gravis without (acute) exacerbation; Z88.1 Allergy status to other antibiotic agents | CPT/HCPCS: 96365; 96366; 96375; J1200; J1568 ==

== ENCOUNTER 2018-05-25 00:01 | Day surgery (SDC) | payer OTHER | END 2018-05-25 11:32 | disposition home or self-care (01) | LOC: ATC 00:01 | DX: R11.2 Nausea with vomiting, unspecified (principal); G70.00 Myasthenia gravis without (acute) exacerbation; Z88.1 Allergy status to other antibiotic agents | CPT/HCPCS: 96365; 96366; 96375; J1200; J1568 ==

== ENCOUNTER 2018-07-28 08:31 | Day surgery (SDC) | payer OTHER ==
[~2018-07-28] VITALS: Ht 190.5 cm; Wt 99.6 kg
[~2018-07-28 08:31] MED LIST changes: +Allegra-D 12 H1 EACH PO; +DIPHENHYDRAMINE IV; +DOCU100 PO; +FERROUS SULFATE PO; -FEXPSEER; +Metoprolol Succ25 MG PO; +NEXIUM 24HR20 M1 PO; +PSEU120ER PO; +PYRIDOSTIGMINE PO; +TYLENOL SINUS1 EAC2 PO
--- NOTE | 2018-07-28 09:50 | NUR ---
History, Chart, Medications and Allergies reviewed before start of procedure.Patient confirms NPO status and agrees with scheduled surgery. Patient reports completing Chlorhexadine shower X2 prior to admission to hospital.Surgical site prepped with 2% Chlorhexidine cloth wipe.
[2018-07-28] MEDS ORDERED: BENZ100A PO (09:58)
--- NOTE | 2018-07-28 19:28 | NUR ---
SHIFT SUMMARY POD #O HERNIA REPAIR PT IS TOLERATING PO INTAKE. PAIN MANAGED PER EMAR PRN. PT UNABLE TO PASS FLATUS. AMBULATION ENCOURAGED. PT HAS REFUSED TO GET OOB. EDUCATION PROVIDED. PROVENA WOUND VAC IN PLACE, SUCTION INTACT, ABD BINDER IN PLACE, SCD'S ARE ON. PT'S IS AT THE BEDSIDE. CALL LIGHT IN REACH.
--- NOTE | 2018-07-29 04:55 | NUR ---
SHIFT SUMMARY PT IS POD 1 HERNIA REPAIR WITH MESH. PT IS A&O, ABLE TO MAKE NEEDS KNOWN. PREVENA WOUND VAC IN PLACE, FOAM COMPRESSED, SURROUNDING AREA DRY. BT ACTIVE, PT REPORTS FLATUS. ABD BINDER IN PLACE. PT HAD NAUSEA OVERNIGHT, MEDICATED PER EMAR. PAIN MEDICATIONS WERE EFFECTIVE, PT HAS INCREASED PAIN WITH COUGHING BUT AT REST HIS PAIN IS LOW AND WELL MANAGED. WILL CTM UNTIL PASS TO NEXT SHIFT.
--- NOTE | 2018-07-29 19:40 | NUR ---
SUMMARY POD #1 HERNIA REPAIR. TOLERATING PO INTAKE WITH SMALL AMOUNT OF NAUSEA. PAIN MANAGED WITH PO NORCO. PROVENA WOUND VAC IN PLACE, SUCTION INTACT. VOIDING WNL. VSS, RESP UNLABORED. AMBULATION STRONGLY ENCOURAGED. PT SAT UP IN A CHAIR FOR AN HR. CALL LIGHT IN REACH. REPORT GIVEN TO JAN ABDULLAHI
--- NOTE | 2018-07-30 05:36 | NUR ---
SHIFT SUMMARY: PT POD #2 FOR HERNIA REPAIR. MIDLINE PROVENA COMPRESSED WITHOUT ANY DRG NOTED T/O SHIFT. PAIN MANAGED WITH NORCO PER EMAR. EATING SML AMTS WITH PAIN MEDS. PT DENIES N/V. LASHELL REG DIET. VOIDING WELL. BT PRESENT, PT REPORTS PASSING GAS. PLAN FOR DISCHARGE TODAY.
[2018-07-30] MEDS ORDERED: HYDR1TAB94 PO (12:56)
--- NOTE | 2018-07-30 13:35 | NUR ---
DISCHARGE: PT EATING AND DRINKING, VOIDING, PASSING GAS. PT/FAMILY REPORTS UNDERSTANDING OF DISCHARGE INSTRUCTIONS. SENT WITH BELONGINGS AND SCRIPT. PT PAIN TOLERABLE ON PO PAIN MEDICATION.
== END 2018-07-30 13:40 | disposition home or self-care (01) ==
LOC: ORSCMMR 08:31 → ORD 10:00 → SURS 13:38 → ORSCMMR 07-30 13:40
PROVIDERS: Surgery
PROC: 0WUF0JZ Supplement Abdominal Wall with Synthetic Substitute, Open Approach (ICD-10-PCS; principal; 2018-07-28 10:00)
DX: K43.0 Incisional hernia with obstruction, without gangrene (principal); I12.9 Hypertensive chronic kidney disease with stage 1 through stage 4 chronic kidney disease, or unspecified chronic kidney disease; N18.9 Chronic kidney disease, unspecified; Z79.899 Other long term (current) drug therapy
CPT/HCPCS: A9270-GY; C1781; J1885; J2405; J2765; J3010; J7120; J7502; J8610

== ENCOUNTER 2018-08-29 00:01 | Day surgery (SDC) | payer OTHER ==
[~2018-08-29 00:01] MED LIST changes: +BENZ100A PO; +HYDR1TAB94 PO
== END 2018-08-29 13:04 | disposition home or self-care (01) ==
LOC: ATC 00:01
DX: G70.00 Myasthenia gravis without (acute) exacerbation (principal)
CPT/HCPCS: 96365; 96366; 96375; J1200; J1568; J2405

== ENCOUNTER 2018-09-28 00:35 | Day surgery (SDC) | payer OTHER | END 2018-09-28 13:00 | disposition home or self-care (01) | LOC: ATC 00:35 | DX: G70.00 Myasthenia gravis without (acute) exacerbation (principal); I10 Essential (primary) hypertension; D64.9 Anemia, unspecified; D72.829 Elevated white blood cell count, unspecified; Z79.899 Other long term (current) drug therapy; Z88.1 Allergy status to other antibiotic agents; Z88.8 Allergy status to other drugs, medicaments and biological substances | CPT/HCPCS: 96365; 96366; 96375; J1200; J1568; J2405 ==

== ENCOUNTER 2018-12-12 00:04 | Day surgery (SDC) | payer OTHER ==
[2018-12-12] MEDS ORDERED: ASTEPRO205.5 MCG/ (08:54)
[2018-12-12] MEDS ORDERED: ZYRTEC10 M2 PO (08:55)
[2018-12-12] MEDS ORDERED: VITAMIN D32000 UNI1 PO (08:56)
[2018-12-12] MEDS ORDERED: OMEP20ER PO (08:58)
[2018-12-12] MEDS ORDERED: NASAL DECONGEST30 MG PO (09:00)
[2018-12-12] MEDS ORDERED: Vitamin B Comple1 EA PO (09:01)
== END 2018-12-12 12:36 | disposition home or self-care (01) ==
LOC: ATC 00:04
DX: G70.00 Myasthenia gravis without (acute) exacerbation (principal); G25.81 Restless legs syndrome; I10 Essential (primary) hypertension; C85.91 Non-Hodgkin lymphoma, unspecified, lymph nodes of head, face, and neck; Z88.1 Allergy status to other antibiotic agents; Z79.899 Other long term (current) drug therapy
CPT/HCPCS: 96365; 96366; J1200; J1568; J2405

== ENCOUNTER 2019-01-09 00:09 | Day surgery (SDC) | payer OTHER ==
[~2019-01-09 00:09] MED LIST changes: +ASTEPRO205.5 MCG/; +NASAL DECONGEST30 MG PO; +OMEP20ER PO; +VITAMIN D32000 UNI1 PO; +Vitamin B Comple1 EA PO; +ZYRTEC10 M2 PO
--- NOTE | 2019-01-09 09:48 | NUR ---
PT C/O HEADACHE AND GENERALLY FEELING BAD. PT GIVEN 25MG OF IV BENADRYL AND 4MG OF IV ZOFRAN.
--- NOTE | 2019-01-09 09:50 | NUR ---
RATE OF IVIG DECREASED TO 400CC/HR.
== END 2019-01-09 13:21 | disposition home or self-care (01) ==
LOC: ATC 00:09
DX: G70.00 Myasthenia gravis without (acute) exacerbation (principal); I10 Essential (primary) hypertension; Z88.1 Allergy status to other antibiotic agents; Z79.899 Other long term (current) drug therapy
CPT/HCPCS: 96365; 96366; 96375; J1200; J1568; J2405

== ENCOUNTER 2019-02-13 07:36 | Day surgery (SDC) | payer OTHER | END 2019-02-13 12:00 | disposition home or self-care (01) | LOC: ATC 07:36 | DX: G70.00 Myasthenia gravis without (acute) exacerbation (principal); I10 Essential (primary) hypertension; G25.81 Restless legs syndrome; Z88.1 Allergy status to other antibiotic agents; Z79.899 Other long term (current) drug therapy | CPT/HCPCS: 96365; 96366; 96375; J1200; J1568 ==

== ENCOUNTER 2019-03-27 00:25 | Day surgery (SDC) | payer OTHER | END 2019-03-27 11:37 | disposition home or self-care (01) | LOC: ATC 00:25 | DX: G70.00 Myasthenia gravis without (acute) exacerbation (principal); G25.81 Restless legs syndrome; I12.9 Hypertensive chronic kidney disease with stage 1 through stage 4 chronic kidney disease, or unspecified chronic kidney disease; N18.2 Chronic kidney disease, stage 2 (mild); E78.5 Hyperlipidemia, unspecified; K21.9 Gastro-esophageal reflux disease without esophagitis; Z85.72 Personal history of non-Hodgkin lymphomas; Z92.21 Personal history of antineoplastic chemotherapy; Z92.3 Personal history of irradiation; Z88.1 Allergy status to other antibiotic agents; Z88.8 Allergy status to other drugs, medicaments and biological substances; Z79.899 Other long term (current) drug therapy | CPT/HCPCS: J1200; J1568 ==

== ENCOUNTER 2019-05-10 00:12 | Day surgery (SDC) | payer OTHER ==
[2019-05-10] MEDS ORDERED: OCTAGAM 10% VIA20 ML IV (08:08)
== END 2019-05-10 12:20 | disposition home or self-care (01) ==
LOC: ATC 00:12
DX: G70.00 Myasthenia gravis without (acute) exacerbation (principal); G25.81 Restless legs syndrome; I10 Essential (primary) hypertension; D50.9 Iron deficiency anemia, unspecified; Z79.899 Other long term (current) drug therapy; Z88.1 Allergy status to other antibiotic agents; Z90.49 Acquired absence of other specified parts of digestive tract; Z85.72 Personal history of non-Hodgkin lymphomas
CPT/HCPCS: 96365; 96366; 96375; J1200; J1568; J2405

== ENCOUNTER 2019-06-21 00:05 | Day surgery (SDC) | payer OTHER ==
[~2019-06-21 00:05] MED LIST changes: +OCTAGAM 10% VIA20 ML IV
--- NOTE | 2019-06-21 08:16 | NUR ---
PT ONLY WANTED 25MG OF BENEDRYL AT THIS TIME
== END 2019-06-21 12:27 | disposition home or self-care (01) ==
LOC: ATC 00:05
DX: G70.00 Myasthenia gravis without (acute) exacerbation (principal); I10 Essential (primary) hypertension; G25.81 Restless legs syndrome; Z88.1 Allergy status to other antibiotic agents; Z79.899 Other long term (current) drug therapy
CPT/HCPCS: 96365; 96366; 96375; J1200; J1568; J2405

== ENCOUNTER → 2019-08-14 | Outpatient (CLI) | payer OTHER ==
[2019-08-14 18:42] LABS: Microalb/Creat Ratio UR, Rand 10.927 mg/g (0.000-30.000); Microalbumin, Random Urine 27.1 mg/L (0.000-20.000)
== END | disposition home or self-care (01) ==
LOC: LAB SHORT 16:26 → LAB 16:26 → LAB FUT 03-15 12:20
PROVIDERS: Family Medicine
DX: I10 Essential (primary) hypertension (principal); R53.83 Other fatigue
CPT/HCPCS: 82043; 82570

== ENCOUNTER 2019-11-13 00:03 | Day surgery (SDC) | payer OTHER ==
[~2019-11-13 00:03] MED LIST changes: -ASTEPRO205.5 MCG/; +AZELASTINE205.5 MCG/; -TYLENOL SINUS1 EAC2 PO; +[UNRECOGNIZED DRUG - OTHER] PO
== END 2019-11-13 11:33 | disposition home or self-care (01) ==
LOC: ATC 00:03
DX: G70.00 Myasthenia gravis without (acute) exacerbation (principal); I10 Essential (primary) hypertension; K21.9 Gastro-esophageal reflux disease without esophagitis; Z79.899 Other long term (current) drug therapy
CPT/HCPCS: 96365; 96366; 96375; J1200; J1568; J2405

== ENCOUNTER 2020-01-22 00:32 | Day surgery (SDC) | payer OTHER ==
--- NOTE | 2020-01-22 08:38 | NUR ---
PT REQUESTED BENADRYL 25MB IV.
--- NOTE | 2020-01-22 08:40 | NUR ---
25MG IV BENADRYL.
== END 2020-01-22 12:20 | disposition home or self-care (01) ==
LOC: ATC 00:32
DX: G70.00 Myasthenia gravis without (acute) exacerbation (principal); I10 Essential (primary) hypertension; K21.9 Gastro-esophageal reflux disease without esophagitis; Z79.899 Other long term (current) drug therapy
CPT/HCPCS: 96365; 96366; 96375; J1200; J1568; J2405

== ENCOUNTER 2020-04-10 00:06 | Day surgery (SDC) | payer OTHER | END 2020-04-10 11:39 | disposition home or self-care (01) | LOC: ATC 00:06 | DX: G70.00 Myasthenia gravis without (acute) exacerbation (principal); I10 Essential (primary) hypertension; G25.81 Restless legs syndrome; D50.9 Iron deficiency anemia, unspecified; J30.9 Allergic rhinitis, unspecified; K21.9 Gastro-esophageal reflux disease without esophagitis; E55.9 Vitamin D deficiency, unspecified; Z88.1 Allergy status to other antibiotic agents; Z79.899 Other long term (current) drug therapy; Z85.72 Personal history of non-Hodgkin lymphomas; Z92.3 Personal history of irradiation; Z92.21 Personal history of antineoplastic chemotherapy | CPT/HCPCS: 96365; 96366; 96375; A9270; J1200; J1568; J2405 ==

== ENCOUNTER 2020-05-10 00:50 | Day surgery (SDC) | payer OTHER | END 2020-05-10 12:23 | disposition home or self-care (01) | LOC: ATC 00:50 | DX: G70.00 Myasthenia gravis without (acute) exacerbation (principal); I10 Essential (primary) hypertension; G25.81 Restless legs syndrome; D50.9 Iron deficiency anemia, unspecified; E55.9 Vitamin D deficiency, unspecified; K21.9 Gastro-esophageal reflux disease without esophagitis; Z88.1 Allergy status to other antibiotic agents; Z79.899 Other long term (current) drug therapy; Z85.72 Personal history of non-Hodgkin lymphomas | CPT/HCPCS: A9270; J1200; J1568; J2405 ==

== ENCOUNTER → 2020-05-14 | Outpatient (CLI) | payer OTHER ==
[~2020-05-14] MED LIST changes: +ACETAMINOPHEN500 MG PO; +CARBIDOPA-LEVO1 EA15 PO; +ESOM20 PO; +FERROUS SULFAT325 M3 PO; +Lopressor 25 mg25 MG PO; +PYRI60 PO; +[UNRECOGNIZED DRUG - OTHER] IV
== END ==
LOC: PLD 12:41 → LAB SHORT 12:41
DX: D22.5 Melanocytic nevi of trunk (principal)
CPT/HCPCS: 88305

== ENCOUNTER 2020-06-03 00:19 | Day surgery (SDC) | payer OTHER | END 2020-06-03 12:10 | disposition home or self-care (01) | LOC: ATC 00:19 | DX: G70.00 Myasthenia gravis without (acute) exacerbation (principal); I10 Essential (primary) hypertension; K21.9 Gastro-esophageal reflux disease without esophagitis; E61.1 Iron deficiency; E55.9 Vitamin D deficiency, unspecified; Z85.72 Personal history of non-Hodgkin lymphomas; Z92.21 Personal history of antineoplastic chemotherapy; Z92.3 Personal history of irradiation | CPT/HCPCS: 96365; 96366; 96375; A9270; J1200; J1568; J2405 ==

== ENCOUNTER 2020-06-07 06:55 | Day surgery (SDC) | payer OTHER ==
[~2020-06-07] VITALS: Ht 190.5 cm; Wt 99.1 kg
--- NOTE | 2020-06-07 08:24 | NUR ---
06/07/20 0823 Nataliia ToribioJulisa WHILE CLIPPING PATIENT, CLIPPERS LEFT SMALL LACERATION APPROX 0.5CM IN SIZE TO RIGHT LOWER ABDOMEN/UPPER GROIN AREA, AND SMALL ABRASION TO INNER GROIN NEAR SCROTUM. PT DENIES PAIN BUT STS "I HAVE REALLY SENSITIVE SKIN". SURGEON & CIRCULATING NURSE NOTIFIED. SURGEON STS OKAY TO PROCEED WITH SURGERY.
--- NOTE | 2020-06-07 08:30 | NUR ---
06/07/20 0830 Karthik Castillo PT NOTED TO HAVE SEVERAL ABRASIONS ON RIGHT LOWER QUADRANT FROM PREOP CLIPPING.
--- NOTE | 2020-06-07 11:26 | NUR ---
06/07/20 [id number] TOM KAPOOR PT WAS CONCERNED ABOUT BEING ABLE TO URINATE. AT TIME OF DC, PT WAS ABLE TO VOID 700ML CLEAR URINE PRIOR JUST PRIOR TO DC.
== END 2020-06-07 11:06 | disposition home or self-care (01) ==
LOC: ORSCSDS 06:55
PROVIDERS: Surgery
PROC: 0YU50JZ Supplement Right Inguinal Region with Synthetic Substitute, Open Approach (ICD-10-PCS; principal; 2020-06-07 08:15)
DX: K40.90 Unilateral inguinal hernia, without obstruction or gangrene, not specified as recurrent (principal); I10 Essential (primary) hypertension; K21.9 Gastro-esophageal reflux disease without esophagitis; G70.00 Myasthenia gravis without (acute) exacerbation; N18.2 Chronic kidney disease, stage 2 (mild); Z79.899 Other long term (current) drug therapy
CPT/HCPCS: A9270; C1781; J1100; J1885; J2001; J2405; J2704; J3010; J7120

== ENCOUNTER 2020-07-19 00:51 | Day surgery (SDC) | payer OTHER ==
[~2020-07-19] VITALS: Wt 102.1 kg
== END 2020-07-19 12:04 | disposition home or self-care (01) ==
LOC: ATC 00:51
DX: G70.00 Myasthenia gravis without (acute) exacerbation (principal); R11.2 Nausea with vomiting, unspecified; I10 Essential (primary) hypertension; D84.9 Immunodeficiency, unspecified; K21.9 Gastro-esophageal reflux disease without esophagitis; Z79.899 Other long term (current) drug therapy
CPT/HCPCS: 96365; 96375; J1200; J1568; J2405

== ENCOUNTER 2020-08-26 00:10 | Day surgery (SDC) | payer OTHER | END 2020-08-26 11:50 | disposition home or self-care (01) | LOC: ATC 00:10 | DX: G70.00 Myasthenia gravis without (acute) exacerbation (principal); I10 Essential (primary) hypertension | CPT/HCPCS: A9270; J1200; J1568; J2405 ==

== ENCOUNTER 2020-10-07 00:13 | Day surgery (SDC) | payer OTHER | END 2020-10-07 12:10 | disposition home or self-care (01) | LOC: ATC 00:13 | DX: G70.00 Myasthenia gravis without (acute) exacerbation (principal); I10 Essential (primary) hypertension; G25.81 Restless legs syndrome; Z85.72 Personal history of non-Hodgkin lymphomas; Z92.21 Personal history of antineoplastic chemotherapy | CPT/HCPCS: 96365; 96366; 96375; A9270; J1200; J1568; J2405 ==

== ENCOUNTER 2020-11-25 02:34 | Day surgery (SDC) | payer OTHER | END 2020-11-25 11:36 | disposition home or self-care (01) | LOC: ATC 02:34 | DX: G70.00 Myasthenia gravis without (acute) exacerbation (principal); I10 Essential (primary) hypertension; G25.81 Restless legs syndrome; E61.1 Iron deficiency; Z85.72 Personal history of non-Hodgkin lymphomas; Z92.21 Personal history of antineoplastic chemotherapy; Z92.3 Personal history of irradiation | CPT/HCPCS: 96365; 96366; 96375; A9270; J1200; J1568; J2405 ==

== ENCOUNTER 2021-01-03 00:21 | Day surgery (SDC) | payer OTHER ==
[~2021-01-03] VITALS: Wt 102.8 kg
== END 2021-01-03 11:59 | disposition home or self-care (01) ==
LOC: ATC 00:21
DX: G70.00 Myasthenia gravis without (acute) exacerbation (principal)
CPT/HCPCS: 96365; 96366; 96375; A9270; J1200; J1568; J2405

== ENCOUNTER 2021-02-12 05:31 | Day surgery (SDC) | payer OTHER ==
--- NOTE | 2021-02-12 08:55 | NUR ---
PT REQUESTED 1000MG TYLENOL PO TODAY. OK PER MD WRITTEN ORDER.
== END 2021-02-12 12:08 | disposition home or self-care (01) ==
LOC: ATC 05:31
DX: G70.00 Myasthenia gravis without (acute) exacerbation (principal)
CPT/HCPCS: 96365; 96366; 96375; A9270; J1200; J1568; J2405

== ENCOUNTER 2021-04-09 00:13 | Day surgery (SDC) | payer OTHER | END 2021-04-09 18:00 | disposition home or self-care (01) | LOC: ATC 00:13 | DX: G70.00 Myasthenia gravis without (acute) exacerbation (principal); I10 Essential (primary) hypertension; G25.81 Restless legs syndrome; Z85.72 Personal history of non-Hodgkin lymphomas | CPT/HCPCS: A9270; J1200; J1568; J2405 ==

== ENCOUNTER 2021-06-27 02:40 | Day surgery (SDC) | payer OTHER ==
[2021-06-27] MEDS ORDERED: Rituxan10 MG/ML (08:28)
== END 2021-06-27 12:07 | disposition home or self-care (01) ==
LOC: ATC 02:40
DX: G70.00 Myasthenia gravis without (acute) exacerbation (principal); I10 Essential (primary) hypertension
CPT/HCPCS: A9270; J1200; J1569; J2405

== ENCOUNTER → 2021-07-02 | Outpatient (CLI) | payer OTHER | END | disposition home or self-care (01) | LOC: LAB SHORT 14:56 | DX: L98.9 Disorder of the skin and subcutaneous tissue, unspecified (principal) | CPT/HCPCS: 88305 ==

== ENCOUNTER → 2021-07-08 | Outpatient (CLI) | payer OTHER ==
[2021-07-08 11:21] LABS: Protein, Urine Quantitative 11.7 mg/dL (0.0-11.9)
[2021-07-08 11:28] LABS: Microalbumin, Urine Quant. <5.000 mg/L (0.000-20.000)
== END ==
LOC: LAB SHORT 08:15
PROVIDERS: Internal Medicine Nephrology
DX: N18.30 Chronic kidney disease, stage 3 unspecified (principal); D63.1 Anemia in chronic kidney disease; N25.81 Secondary hyperparathyroidism of renal origin; E55.9 Vitamin D deficiency, unspecified; E78.00 Pure hypercholesterolemia, unspecified; R76.9 Abnormal immunological finding in serum, unspecified; R94.5 Abnormal results of liver function studies; R94.6 Abnormal results of thyroid function studies
CPT/HCPCS: 81050; 82043; 82570; 84156

== ENCOUNTER 2021-10-17 00:50 | Day surgery (SDC) | payer OTHER ==
[~2021-10-17] VITALS: Wt 102.2 kg
== END 2021-10-17 11:55 | disposition home or self-care (01) ==
LOC: ATC 00:50
DX: G70.00 Myasthenia gravis without (acute) exacerbation (principal); I10 Essential (primary) hypertension; K21.9 Gastro-esophageal reflux disease without esophagitis; G25.81 Restless legs syndrome
CPT/HCPCS: 96365; 96366; 96375; A9270; J1200; J1568; J2405

== ENCOUNTER → 2021-11-20 | Outpatient (CLI) | payer OTHER | END | disposition home or self-care (01) | LOC: LAB SHORT 09:00 → LAB 09:00 | PROVIDERS: Family Medicine | DX: I10 Essential (primary) hypertension (principal) | CPT/HCPCS: 81050 ==

== ENCOUNTER → 2022-03-30 | Outpatient (CLI) | payer OTHER ==
[2022-03-30 14:26] LABS: Creatinine Urine 87.3 mg/dL (27.00-270.00); Microalbumin, Urine Quant. 6.28 mg/L (0.000-20.000); Protein, Urine Quantitative 17.5 mg/dL (0.0-11.9)
== END ==
LOC: LAB SHORT 10:18
PROVIDERS: Internal Medicine Nephrology
DX: N18.2 Chronic kidney disease, stage 2 (mild) (principal); D63.1 Anemia in chronic kidney disease; N25.81 Secondary hyperparathyroidism of renal origin; E55.9 Vitamin D deficiency, unspecified; E78.00 Pure hypercholesterolemia, unspecified; R76.9 Abnormal immunological finding in serum, unspecified; R94.5 Abnormal results of liver function studies; R94.6 Abnormal results of thyroid function studies
CPT/HCPCS: 81050; 82043; 82570; 84156

== ENCOUNTER 2022-05-18 02:11 | Day surgery (SDC) | payer OTHER | END 2022-05-18 11:08 | disposition home or self-care (01) | LOC: ATC 02:11 | DX: G70.00 Myasthenia gravis without (acute) exacerbation (principal); G25.81 Restless legs syndrome; I10 Essential (primary) hypertension; Z92.21 Personal history of antineoplastic chemotherapy; Z92.3 Personal history of irradiation | CPT/HCPCS: A9270; J1200; J1569; J2405 ==